=== PATIENT | male | born 1990 | race Caucasian/White ===

== ENCOUNTER 2016-11-05 15:22 | Emergency (ER) | payer OTHER ==
[~2016-11-05] VITALS: Ht 177.8 cm; Wt 117.1 kg
[2016-11-05 15:29] VITALS: BP 143/84
[2016-11-05] MEDS ORDERED: NACL 0.9% 1,000 ML IV SCH (16:06)
[2016-11-05] MEDS ORDERED: KETOROLAC 30 MG/ML VIAL IVP ONE (16:10)
[2016-11-05] MEDS ORDERED: ONDANSETRON 4 MG/2 ML VIAL IVP ONE (16:10)
[2016-11-05] MEDS ORDERED: PANTOPRAZOLE 40 MG INJ VIAL IVP ONE (16:10)
[2016-11-05 16:25] LABS: BASOPHILS # (AUTO) 0.4 K/uL (0.00-0.22); EOSINOPHILS # (AUTO) 0.3 K/uL (0-0.4); HEMOGLOBIN 14.9 g/dL (12.0-18.0); MEAN CORPUSCULAR HEMOGLOBIN 30 pg (27-31); MEAN CORPUSCULAR HGB CONC 33 g/dL (33-37); MEAN CORPUSCULAR VOLUME 89 fL (80-94); MONOCYTES # (AUTO) 1.1 K/uL (0.8-1.0); PLATELET COUNT (AUTO) 260 K/uL (140-450); RED BLOOD CELL COUNT(AUTO) 5.06 MIL/uL (4.20-6.10); RED CELL DISTRIBUTION WIDTH 13.2 % (11.6-13.7); WHITE BLOOD COUNT (AUTO) 10.8 K/uL (4.8-10.8)
[2016-11-05 16:30] LABS: APPEARANCE,URINE CLEAR (CLEAR); BILIRUBIN,URINE NEGATIVE (NEGATIVE); BLOOD, URINE TRACE-L (NEGATIVE); COLOR,URINE YELLOW (YELLOW); LEUKOCYTE ESTERASE ,URINE NEGATIVE (NEGATIVE); NITRITE, URINE NEGATIVE (NEGATIVE); UGLUCOSE NEGATIVE (NEGATIVE)
[2016-11-05 16:37] LABS: ANION GAP 14.3 (8-16); CARBON DIOXIDE 24.2 mmol/L (21-32); POTASSIUM 3.5 mmol/L (3.5-5.1)
[2016-11-05 16:37] LABS: RBC,URINE 11-20 (MOD) /HPF (0-5); WBC,URINE 0-5 (RARE) /HPF (0-5)
[2016-11-05 16:44] LABS: ALBUMIN 3.6 g/dL (3.4-5.0); TOTAL BILIRUBIN 0.3 mg/dL (0.0-1.0)
[2016-11-05 17:37] VITALS: BP 142/88
== END 2016-11-05 17:37 | disposition home or self-care (01) ==
LOC: MED 15:22
DX: R10.13 Epigastric pain (principal); R11.2 Nausea with vomiting, unspecified; R19.7 Diarrhea, unspecified; J45.909 Unspecified asthma, uncomplicated; K21.9 Gastro-esophageal reflux disease without esophagitis
CPT/HCPCS: 36415; 80053; 81001; 83690; 85025; 96361; 96374; 96375; 99284; C9113; J1885; J2405; J7030

== ENCOUNTER 2017-03-17 02:04 | Emergency (ER) | payer OTHER ==
[~2017-03-17] VITALS: Ht 177.8 cm; Wt 108.9 kg
[2017-03-17 02:08] VITALS: BP 135/83
[2017-03-17] MEDS ORDERED: NACL 0.9% 1,000 ML IV ONE (02:20)
[2017-03-17] MEDS ORDERED: ONDANSETRON 4 MG/2 ML VIAL IVP ONE (02:40)
[2017-03-17] MEDS ORDERED: ONDANSETRON 4 MG/2 ML VIAL ONE (02:42)
[2017-03-17 02:49] LABS: MEAN CORPUSCULAR HEMOGLOBIN 29 pg (27-31); MEAN CORPUSCULAR HGB CONC 33 g/dL (33-37); MEAN CORPUSCULAR VOLUME 89 fL (80-94); PLATELET COUNT (AUTO) 290 K/uL (140-450); RED BLOOD CELL COUNT(AUTO) 5.87 MIL/uL (4.20-6.10); RED CELL DISTRIBUTION WIDTH 12.8 % (11.6-13.7); WHITE BLOOD COUNT (AUTO) 12.4 K/uL (4.8-10.8)
--- NOTE | 2017-03-17 02:53 | NUR ---
PT BIB AMBULANCE TO ER BED 12
--- NOTE | 2017-03-17 02:54 | NUR ---
26/M BIBA FOR ALOC/ ETOH, PER EMS PT WAS FOUND ON THE [address]RE[address] BY PD. VSS, AROUSABLE TO NOXIOUS STIMULI. EMS REPORTS VOMITING X 2. ALL LUNG SOUNDS CBTA, 20RR EVEN AND UNLABORED. HR REGULAR. UNKNOWN PMH/RX/OTC
[2017-03-17 03:02] LABS: ANION GAP 14.5 (8-16); CARBON DIOXIDE 28.2 mmol/L (21-32); CREATININE 1.2 mg/dL (0.7-1.3); POTASSIUM 4.7 mmol/L (3.5-5.1)
[2017-03-17 03:07] LABS: ALBUMIN 4.1 g/dL (3.4-5.0); TOTAL BILIRUBIN 0.2 mg/dL (0.0-1.0)
[2017-03-17 03:14] LABS: EOSINOPHILS % (MANUAL) 2 % (0-4); LYMPHOCYTES % (MANUAL) 17 % (20-46); MONOCYTES % (MANUAL) 7 % (5-12)
[2017-03-17] MEDS ORDERED: MULTIVITAMIN-12 10 ML, THIAMINE 100 MG, MAGNESIUM SULFATE 50% 2,000 MG, FOLIC ACID 5 MG... IV ONE ×5 (03:20)
[2017-03-17] MEDS ORDERED: THIAMINE 200 MG/2 ML VIAL ONE (04:09)
[2017-03-17] MEDS ORDERED: MAGNESIUM SULFATE 50% 1000 MG/2 ML VIAL IV ONE (04:09)
[2017-03-17] MEDS ORDERED: FOLIC ACID 5 MG/ML SYR ONE (04:09)
[2017-03-17] MEDS ORDERED: MULTIVITAMIN-12 10 ML VIAL IV ONE (04:09)
--- NOTE | 2017-03-17 05:34 | NUR ---
Patient appears to be resting comfortably in bed. Vital Signs within normal limits. Respirations even and unlabored.
--- NOTE | 2017-03-17 06:50 | NUR ---
Patient presented to facility under the influence of Alcohol. Patient is currently ambulatory with steady gait, able to walk unassisted. Positive gag reflex. Alert and oriented. Is not driving self for discharge out of facility.IV removed, catheter intact and site benign. Applied folded 4x4 gauze and tape to stop bleeding.
[2017-03-17 07:24] VITALS: BP 124/76
== END 2017-03-17 06:50 | disposition home or self-care (01) ==
LOC: MED 02:04
DX: F10.129 Alcohol abuse with intoxication, unspecified (principal); T68.XXXA Hypothermia, initial encounter; J45.909 Unspecified asthma, uncomplicated; K21.9 Gastro-esophageal reflux disease without esophagitis
CPT/HCPCS: 36415; 80053; 82550; 84484; 85025; 93005; 96361; 96365; 96366; 96375; 99285; A9153; G0482; J2405; J3411; J3475; J3490; J7030

== ENCOUNTER 2017-07-24 21:46 | Emergency (ER) | payer OTHER ==
[~2017-07-24] VITALS: Ht 177.8 cm; Wt 97.7 kg
[2017-07-24 21:49] VITALS: BP 119/78
--- NOTE | 2017-07-24 21:52 | NUR ---
TO BED # 7 AMBULATORY, REPORT GIVEN TO FELICE MARIEE
--- NOTE | 2017-07-24 21:55 | NUR ---
ASSUMED CARE OF PT AT THIS TIME. C/O SOB...NO RESPIRATORY DISTRESS NOTED...PT SPEAKS IN FULL SENTENCES. PT REQUESTING STD TESTING. AAOX4 WITH EVEN AND STEADY GAIT; PATIENT STATES PAIN OF 8/10 AT THIS TIME; VSS; PATIENT POSITIONED FOR COMFORT; HOB ELEVATED; BEDRAILS UP X2; BED DOWN. ER MD MADE AWARE OF PT STATUS. WILL CONTINUE TO MONITOR.
[2017-07-24] MEDS ORDERED: IBUPROFEN 800 MG TAB PO ONE (22:20)
[2017-07-24] MEDS ORDERED: cefTRIAXone 250 MG in LIDOCAINE MPF 1% - **ER/OR** 0.9 ML IM ONE (22:20)
[2017-07-24] MEDS ORDERED: AZITHROMYCIN 250 MG TAB PO ONE (22:20)
[2017-07-24] MEDS ORDERED: SULFAMETH/TRIMETH DS 800/160MG 1 TAB PO ONE (22:20)
[2017-07-24 23:10] VITALS: BP 122/74
[2017-07-24 23:10] LABS: APPEARANCE,URINE SL CLOUDY (CLEAR); BILIRUBIN,URINE NEGATIVE (NEGATIVE); BLOOD, URINE NEGATIVE (NEGATIVE); COLOR,URINE YELLOW (YELLOW); LEUKOCYTE ESTERASE ,URINE NEGATIVE (NEGATIVE); NITRITE, URINE NEGATIVE (NEGATIVE); UGLUCOSE NEGATIVE (NEGATIVE)
--- NOTE | 2017-07-24 23:10 | NUR ---
Patient discharged with v/s stable. Written and verbal after care instructions given and explained. Patient alert, oriented and verbalized understanding of instructions. Ambulatory with steady gait. All questions addressed prior to discharge. ID band removed. Patient advised to follow up with PMD. Rx of ALBUTEROL, DOXYCYCLINE, AND MOTRIN given. Patient educated on indication of medication including possible reaction and side effects. Opportunity to ask questions provided and answered.
== END 2017-07-24 23:10 | disposition home or self-care (01) ==
LOC: MED 21:46
DX: J45.901 Unspecified asthma with (acute) exacerbation (principal); N48.22 Cellulitis of corpus cavernosum and penis; K21.9 Gastro-esophageal reflux disease without esophagitis
CPT/HCPCS: 81003; 87070; 87086; 87186; 96372; 99284; J0696; J2001